=== PATIENT | male | born 1985 | race Caucasian/White ===

== ENCOUNTER 2019-06-05 19:52 | Inpatient (IN) | payer OTHER, MEDICAID ==
[~2019-06-05] VITALS: Ht 188 cm; Wt 131.6 kg
[2019-06-05] MEDS: NITROGLYCERIN 0.4MG TABLET SL SL PRN ×3 (20:58→21:33)
[2019-06-05] MEDS ORDERED: ASPIRIN 81MG TABLET PO ONE (21:00)
[2019-06-05 21:24] LABS: BASOPHILS % 1.4 % (0.0-2.0); EOSINOPHILS % 0.9 % (0.0-5.0); HEMATOCRIT. 50.7 % (42.0-52.0); HEMOGLOBIN. 17.6 g/dL (14.0-18.0); LYMPHOCYTES % 19.7 % (20.0-50.0); MEAN CORPUSCULAR HEMOGLOBIN 29.6 pg (28.0-32.0); MEAN CORPUSCULAR VOLUME 85.3 fL (80.0-94.0); MEAN PLATELET VOLUME 10.5 fl (7.4-10.4); MONOCYTES % 4.8 % (2.0-8.0); NEUTROPHILS % 73.2 % (40.0-76.0); PLATELET 230 x1000/uL (130-400); RED BLOOD CELL COUNT 5.94 mill/uL (4.7-6.1); RED CELL DISTRIBUTION WIDTH 13.6 % (11.6-14.6)
[2019-06-05 21:27] LABS: CHLORIDE 101 mEq/L (98-107)
[2019-06-05 21:31] LABS: ETHANOL BLOOD < 10 mg/dL
[2019-06-05 21:38] LABS: *AMPHETAMINES SCREEN URINE NEGATIVE (NEGATIVE); *BARBITURATES SCREEN URINE NEGATIVE (NEGATIVE); *BENZODIAZEPINES SCREEN URINE NEGATIVE (NEGATIVE); *COCAINE SCREEN URINE NEGATIVE (NEGATIVE); METHADONE URINE SCREEN NEGATIVE (NEGATIVE); OPIATES URINE SCREEN NEGATIVE (NEGATIVE)
[2019-06-05 21:39] LABS: CANNABINOID URINE SCREEN PRESUMTIVE POSITIVE (NEGATIVE); PHENCYCLIDINE URINE SCREEN NEGATIVE (NEGATIVE)
[2019-06-05] MEDS ORDERED: MORPHINE SULFATE 4 MG/ML CPJ (NOT FOR IM USE) IV ONE (22:30)
[2019-06-06] VITALS (28 sets, daily range): BP systolic 116–157; BP diastolic 65–113
[2019-06-06] MEDS ORDERED: ENOXAPARIN 150MG/ML SYR SUBCUT ONE
[2019-06-06] MEDS ORDERED: CLONIDINE 0.1MG TABLET PO PRN (01:15)
[2019-06-06] MEDS ORDERED: ONDANSETRON HCL 4MG/2ML INJ IV PRN ×2 (01:15→13:00)
[2019-06-06] MEDS ORDERED: DEXTROSE 50% WATER 50ML SYRINGE IV PRN (01:15)
[2019-06-06] MEDS ORDERED: DIPHENHYDRAMINE 50MG/ML VIAL IV PRN (01:15)
[2019-06-06] MEDS ORDERED: MAGNESIUM/ALUMINUM HYDROXIDE/SIMETHICONE 30ML UDC PO PRN (01:15)
[2019-06-06] MEDS ORDERED: ENOXAPARIN 40MG/0.4ML SYR SUBCUT SCH (01:15)
[2019-06-06] MEDS ORDERED: KETOROLAC 30MG/ML VIAL IV PRN (01:30)
[2019-06-06] MEDS ORDERED: MAGNESIUM HYDROXIDE 400MG/5ML 30ML UDC PO PRN (01:30)
[2019-06-06] MEDS ORDERED: MORPHINE SULFATE 2 MG/ML CPJ (NOT FOR IM USE) IV PRN ×2 (01:30→05:30)
[2019-06-06] MEDS: SODIUM CHLORIDE 0.9% INJ 3ML FLUSH IVF SCH (06:00)
[2019-06-06] MEDS ORDERED: BENAZEPRIL 10MG TABLET PO SCH (09:00)
[2019-06-06] MEDS ORDERED: METO-396 MT (11:07)
[2019-06-06] MEDS ORDERED: CLOP75TA4 MT (11:07)
[2019-06-06] MEDS ORDERED: ASPI-1393 MT (11:07)
[2019-06-06] MEDS ORDERED: ATOR10TA MT (11:07)
[2019-06-06] MEDS ORDERED: AMLODIPINE 5MG TABLET PO SCH (11:30)
[2019-06-06] MEDS ORDERED: CLOPIDOGREL 75MG TABLET PO NR (11:30)
[2019-06-06] MEDS ORDERED: HYDRALAZINE 20MG/ML VIAL IV PRN (11:32)
[2019-06-06] MEDS ORDERED: LIDOCAINE HCL 1% 20ML VIAL (Pyxis) INJ ONE (11:45)
[2019-06-06] MEDS ORDERED: SODIUM CHLORIDE 0.45% 1,000 ML IV SCH (11:45)
[2019-06-06] MEDS ORDERED: MIDAZOLAM HCL 2 MG/2 ML VIAL ONE (11:45)
[2019-06-06] MEDS: BENAZEPRIL 10MG TABLET PO SCH ×2 (11:45→20:31)
[2019-06-06] MEDS ORDERED: FENTANYL CITRATE/PF 50MCG/ML 2ML VIAL ONE (11:45)
[2019-06-06] MEDS: BLOOD SUGAR DIAGNOSTIC STRIP TEST SCH ×3 (11:45→21:00)
[2019-06-06] MEDS ORDERED: IODIXANOL 320MG/ML 200ML BOTTLE ONE (11:46)
[2019-06-06] MEDS ORDERED: IODIXANOL 320MG/ML 100 ML BOTTLE IV ONE (11:46)
[2019-06-06 11:49] LABS: BASOPHILS % 0.7 % (0.0-2.0); EOSINOPHILS % 0.2 % (0.0-5.0); HEMATOCRIT. 50.9 % (42.0-52.0); HEMOGLOBIN. 17.7 g/dL (14.0-18.0); LYMPHOCYTES % 17.8 % (20.0-50.0); MEAN CORPUSCULAR HEMOGLOBIN 29.6 pg (28.0-32.0); MEAN CORPUSCULAR VOLUME 85.2 fL (80.0-94.0); MEAN PLATELET VOLUME 9.7 fl (7.4-10.4); MONOCYTES % 6.5 % (2.0-8.0); NEUTROPHILS % 74.8 % (40.0-76.0); PLATELET 207 x1000/uL (130-400); RED BLOOD CELL COUNT 5.97 mill/uL (4.7-6.1); RED CELL DISTRIBUTION WIDTH 13.8 % (11.6-14.6)
[2019-06-06 12:00] LABS: CHLORIDE 101 mEq/L (98-107)
[2019-06-06] MEDS ORDERED: NICARDIPINE 100MCG/ML 10ML VIAL (CATH LAB) IV ONE (12:00)
[2019-06-06] MEDS ORDERED: NITROGLYCERIN 50MCG/ML 10ML VIAL (CATH LAB) IV ONE (12:00)
[2019-06-06] MEDS ORDERED: ASPIRIN 81MG EC TABLET PO SCH (12:00)
[2019-06-06] MEDS ORDERED: ENOXAPARIN 30MG/0.3ML SYR SUBCUT SCH (12:00)
[2019-06-06] MEDS ORDERED: ASPIRIN 325MG TABLET ONE (12:05)
[2019-06-06] MEDS ORDERED: CLOPIDOGREL 75MG TABLET ONE (12:07)
[2019-06-06 12:09] LABS: LDL CHOLESTEROL 79 mg/dL (5-100)
[2019-06-06 12:10] LABS: HDL CHOLESTEROL 29 mg/dL (40-59)
[2019-06-06] MEDS ORDERED: EPTIFIBATIDE 100 ML IV ONE (12:16)
[2019-06-06] MEDS ORDERED: EPTIFIBATIDE 2 MG/ML 10ML VIAL IV ONE (12:16)
[2019-06-06] MEDS ORDERED: HEPARIN SODIUM 1,000 UNIT/1ML VIAL IV ONE (12:53)
[2019-06-06] MEDS ORDERED: ATROPINE SULFATE 1MG/10ML SYR IV PRN (13:00)
[2019-06-06] MEDS ORDERED: INSULIN GLARGINE UD 100 UNITS/ML SYR SUBCUT SCH (13:00)
[2019-06-06] MEDS ORDERED: ACETAMINOPHEN 325MG TABLET PO PRN (13:00)
[2019-06-06] MEDS ORDERED: FUROSEMIDE 20MG TABLET PO NR (13:15)
[2019-06-06] MEDS: INSULIN LISPRO 100 UNITS/ML SUBCUT SCH ×4 (13:20→20:52)
[2019-06-06] MEDS ORDERED: POTASSIUM CHLORIDE 10MEQ TABLET SR PO NR (14:00)
[2019-06-06] MEDS: NITROGLYCERIN OINT 1GM/INCH UDPKT TD SCH ×2 (14:56→22:56)
[2019-06-06] MEDS ORDERED: METOPROLOL TARTRATE 5MG/5ML VIAL IV ONE (16:40)
[2019-06-06] MEDS: FAMOTIDINE 20MG TABLET PO SCH (20:29)
[2019-06-06] MEDS: ATORVASTATIN CALCIUM 20MG TABLET PO SCH (20:30)
[2019-06-06] MEDS: AMLODIPINE 5MG TABLET PO SCH (20:30)
[2019-06-06] MEDS: CARVEDILOL 3.125 MG TABLET PO SCH (20:32)
[2019-06-06] MEDS: MORPHINE SULFATE 2 MG/ML CPJ (NOT FOR IM USE) IV PRN (20:39)
[2019-06-06] MEDS ORDERED: ATORVASTATIN CALCIUM 20MG TABLET PO SCH (21:00)
[2019-06-06] MEDS ORDERED: FAMOTIDINE 20MG TABLET PO SCH (21:00)
[2019-06-07] VITALS (36 sets, daily range): BP systolic 74–147; BP diastolic 37–97
[2019-06-07] MEDS: NITROGLYCERIN OINT 1GM/INCH UDPKT TD SCH (06:00)
[2019-06-07] MEDS: SODIUM CHLORIDE 0.9% INJ 3ML FLUSH IVF SCH ×3 (06:00→22:18)
[2019-06-07 06:28] LABS: BASOPHILS % 0.6 % (0.0-2.0); EOSINOPHILS % 1.2 % (0.0-5.0); HEMATOCRIT. 48.4 % (42.0-52.0); HEMOGLOBIN. 16.6 g/dL (14.0-18.0); LYMPHOCYTES % 25.7 % (20.0-50.0); MEAN CORPUSCULAR HEMOGLOBIN 29.7 pg (28.0-32.0); MEAN CORPUSCULAR VOLUME 86.3 fL (80.0-94.0); MEAN PLATELET VOLUME 9.9 fl (7.4-10.4); MONOCYTES % 11.2 % (2.0-8.0); NEUTROPHILS % 61.3 % (40.0-76.0); PLATELET 180 x1000/uL (130-400); RED BLOOD CELL COUNT 5.61 mill/uL (4.7-6.1); RED CELL DISTRIBUTION WIDTH 13.8 % (11.6-14.6)
[2019-06-07 06:42] LABS: CHLORIDE 101 mEq/L (98-107)
[2019-06-07] MEDS: BLOOD SUGAR DIAGNOSTIC STRIP TEST SCH ×4 (07:50→21:15)
[2019-06-07] MEDS: ASPIRIN 325MG TABLET PO SCH (08:04)
[2019-06-07] MEDS: POTASSIUM CHLORIDE 10MEQ TABLET SR PO SCH (08:05)
[2019-06-07] MEDS: BENAZEPRIL 10MG TABLET PO SCH (08:05)
[2019-06-07] MEDS: CLOPIDOGREL 75MG TABLET PO SCH (08:05)
[2019-06-07] MEDS: FUROSEMIDE 20MG TABLET PO SCH (08:05)
[2019-06-07] MEDS: FAMOTIDINE 20MG TABLET PO SCH ×2 (08:06→21:15)
[2019-06-07] MEDS: CARVEDILOL 3.125 MG TABLET PO SCH ×2 (08:06→21:13)
[2019-06-07] MEDS: AMLODIPINE 5MG TABLET PO SCH (08:07)
[2019-06-07] MEDS: MORPHINE SULFATE 2 MG/ML CPJ (NOT FOR IM USE) IV PRN (08:07)
[2019-06-07] MEDS: INSULIN LISPRO 100 UNITS/ML SUBCUT SCH ×4 (08:08→21:20)
[2019-06-07] MEDS ORDERED: LISINOPRIL 5MG TABLET PO SCH (09:00)
[2019-06-07] MEDS ORDERED: CLOPIDOGREL 75MG TABLET PO SCH (09:00)
[2019-06-07] MEDS: INSULIN GLARGINE UD 100 UNITS/ML SYR SUBCUT SCH (12:42)
[2019-06-07] MEDS: LISINOPRIL 2.5MG TABLET PO SCH (12:43)
[2019-06-07] MEDS: ACETAMINOPHEN 325MG TABLET PO PRN (20:16)
[2019-06-07] MEDS: ATORVASTATIN CALCIUM 20MG TABLET PO SCH (21:14)
[2019-06-08] VITALS (28 sets, daily range): BP systolic 100–132; BP diastolic 56–102
[2019-06-08 05:22] LABS: BASOPHILS % 0.8 % (0.0-2.0); EOSINOPHILS % 2.2 % (0.0-5.0); HEMATOCRIT. 45.7 % (42.0-52.0); HEMOGLOBIN. 15.8 g/dL (14.0-18.0); MEAN CORPUSCULAR HEMOGLOBIN 29.6 pg (28.0-32.0); MEAN CORPUSCULAR VOLUME 85.5 fL (80.0-94.0); MEAN PLATELET VOLUME 9.6 fl (7.4-10.4); MONOCYTES % 11.3 % (2.0-8.0); NEUTROPHILS % 49.7 % (40.0-76.0); PLATELET 159 x1000/uL (130-400); RED BLOOD CELL COUNT 5.34 mill/uL (4.7-6.1); RED CELL DISTRIBUTION WIDTH 13.8 % (11.6-14.6)
[2019-06-08 05:29] LABS: CHLORIDE 104 mEq/L (98-107)
[2019-06-08] MEDS: SODIUM CHLORIDE 0.9% INJ 3ML FLUSH IVF SCH ×3 (05:55→22:35)
[2019-06-08] MEDS: BLOOD SUGAR DIAGNOSTIC STRIP TEST SCH ×4 (07:50→20:59)
[2019-06-08] MEDS: CLOPIDOGREL 75MG TABLET PO SCH (08:25)
[2019-06-08] MEDS: ASPIRIN 325MG TABLET PO SCH (08:25)
[2019-06-08] MEDS: FUROSEMIDE 20MG TABLET PO SCH (08:25)
[2019-06-08] MEDS: POTASSIUM CHLORIDE 10MEQ TABLET SR PO SCH (08:25)
[2019-06-08] MEDS: FAMOTIDINE 20MG TABLET PO SCH ×2 (08:26→20:36)
[2019-06-08] MEDS: AMLODIPINE 2.5MG TABLET PO SCH (08:30)
[2019-06-08] MEDS: LISINOPRIL 2.5MG TABLET PO SCH (08:30)
[2019-06-08] MEDS: CARVEDILOL 3.125 MG TABLET PO SCH ×2 (08:30→20:38)
[2019-06-08] MEDS: INSULIN LISPRO 100 UNITS/ML SUBCUT SCH ×4 (08:49→20:55)
[2019-06-08] MEDS: INSULIN GLARGINE UD 100 UNITS/ML SYR SUBCUT SCH (09:58)
[2019-06-08] MEDS: ATORVASTATIN CALCIUM 20MG TABLET PO SCH (20:36)
[2019-06-08] MEDS: ACETAMINOPHEN 325MG TABLET PO PRN (20:54)
[2019-06-09] VITALS (7 sets, daily range): BP systolic 106–142; BP diastolic 68–97
[2019-06-09] MEDS: SODIUM CHLORIDE 0.9% INJ 3ML FLUSH IVF SCH ×2 (05:19→13:15)
[2019-06-09] MEDS: BLOOD SUGAR DIAGNOSTIC STRIP TEST SCH ×2 (05:52→11:50)
[2019-06-09 06:36] LABS: BASOPHILS % 0.8 % (0.0-2.0); EOSINOPHILS % 2.2 % (0.0-5.0); HEMOGLOBIN. 15.7 g/dL (14.0-18.0); LYMPHOCYTES % 36.6 % (20.0-50.0); MEAN CORPUSCULAR HEMOGLOBIN 29.4 pg (28.0-32.0); MEAN CORPUSCULAR VOLUME 86.2 fL (80.0-94.0); MEAN PLATELET VOLUME 9.9 fl (7.4-10.4); MONOCYTES % 9.5 % (2.0-8.0); NEUTROPHILS % 50.9 % (40.0-76.0); PLATELET 158 x1000/uL (130-400); RED BLOOD CELL COUNT 5.33 mill/uL (4.7-6.1); RED CELL DISTRIBUTION WIDTH 13.8 % (11.6-14.6)
[2019-06-09] MEDS: AMLODIPINE 2.5MG TABLET PO SCH (08:29)
[2019-06-09] MEDS: ASPIRIN 325MG TABLET PO SCH (08:29)
[2019-06-09] MEDS: POTASSIUM CHLORIDE 10MEQ TABLET SR PO SCH ×2 (08:29→13:14)
[2019-06-09] MEDS: CARVEDILOL 3.125 MG TABLET PO SCH (08:29)
[2019-06-09] MEDS: FAMOTIDINE 20MG TABLET PO SCH (08:29)
[2019-06-09] MEDS: CLOPIDOGREL 75MG TABLET PO SCH (08:29)
[2019-06-09] MEDS: FUROSEMIDE 20MG TABLET PO SCH (08:29)
[2019-06-09] MEDS: LISINOPRIL 2.5MG TABLET PO SCH (08:29)
[2019-06-09] MEDS: INSULIN LISPRO 100 UNITS/ML SUBCUT SCH ×2 (08:31→13:32)
[2019-06-09 09:11] LABS: CHLORIDE 105 mEq/L (98-107)
[2019-06-09] MEDS ORDERED: INSULIN GLARGINE UD 100 UNITS/ML SYR SUBCUT SCH (10:00)
[2019-06-09] MEDS ORDERED: POTASSIUM CHLORIDE 20MEQ TABLET SR PO NR (11:30)
== END 2019-06-09 16:00 | disposition home or self-care (01) | DRG 174 ==
LOC: EDBD 19:52 → ER 19:52 → 6WST 06-06 00:33 → ENRESERV 06-06 08:05 → CVICU 06-06 13:04 → 3WST 06-08 21:38
PROVIDERS: ADMIT Internal Medicine; ATTEND Internal Medicine
PROC: 4A023N7 Measurement of Cardiac Sampling and Pressure, Left Heart, Percutaneous Approach (ICD-10-PCS; principal; 2019-06-06)
PROC: 02703ZZ Dilation of Coronary Artery, One Artery, Percutaneous Approach (ICD-10-PCS; 2019-06-06)
PROC: B211YZZ Fluoroscopy of Multiple Coronary Arteries using Other Contrast (ICD-10-PCS; 2019-06-06)
DX: I21.09 ST elevation (STEMI) myocardial infarction involving other coronary artery of anterior wall (principal); I11.0 Hypertensive heart disease with heart failure; E11.65 Type 2 diabetes mellitus with hyperglycemia; I50.20 Unspecified systolic (congestive) heart failure; I25.110 Atherosclerotic heart disease of native coronary artery with unstable angina pectoris; E66.9 Obesity, unspecified; E78.5 Hyperlipidemia, unspecified; E78.00 Pure hypercholesterolemia, unspecified; F17.210 Nicotine dependence, cigarettes, uncomplicated; I25.2 Old myocardial infarction; Z59.9 Problem related to housing and economic circumstances, unspecified; Z79.02 Long term (current) use of antithrombotics/antiplatelets; Z79.82 Long term (current) use of aspirin; Z79.899 Other long term (current) drug therapy; Z82.3 Family history of stroke; Z82.49 Family history of ischemic heart disease and other diseases of the circulatory system; Z91.19 Patient's noncompliance with other medical treatment and regimen; Z83.3 Family history of diabetes mellitus; Z95.5 Presence of coronary angioplasty implant and graft; Z68.37 Body mass index [BMI] 37.0-37.9, adult; Z71.6 Tobacco abuse counseling; Z79.84 Long term (current) use of oral hypoglycemic drugs
CPT/HCPCS: 36415; 71045; 80048; 80061; 80305; 80320; 82962; 83036; 83880; 84484; 85347; 92928; 93005; 93306; 93458; 99291; C1725; C1760; C1769; C1874; C1887; C1893; J1327; J1644; J1650; J1815; J2250; J2270; J3010; J3490; Q9967; G0480

== ENCOUNTER 2022-12-22 06:48 | Emergency (ER) | payer SELFPAY ==
[~2022-12-22] VITALS: Ht 188 cm; Wt 125.0 kg
[~2022-12-22 06:48] MED LIST: ASPI-1497 MT; ATOR10TA MT; CLOP-31 MT; METO-396 MT
[2022-12-22 07:50] LABS: EOSINOPHILS % 2.1 % (0.0-5.0); HEMOGLOBIN. 15.9 g/dL (14.0-18.0); LYMPHOCYTES % 28.2 % (20.0-50.0); MEAN CORPUSCULAR VOLUME 86.9 fL (80.0-94.0); MONOCYTES % 7.9 % (2.0-8.0); NEUTROPHILS % 60.8 % (40.0-76.0); PLATELET 174 x1000/uL (130-400); RED CELL DISTRIBUTION WIDTH 14.1 % (11.6-14.6)
[2022-12-22 07:57] LABS: CHLORIDE 108 mEq/L (98-107)
[2022-12-22] MEDS ORDERED: CLOPIDOGREL 75MG TABLET PO ONE (08:15)
[2022-12-22] MEDS ORDERED: LORAZEPAM 2MG/ML CPJ IM ONE (08:45)
[2022-12-22 11:48] VITALS: BP 128/81
[2022-12-22] MEDS ORDERED: SITA100T11 PO (11:53)
[2022-12-22] MEDS ORDERED: NAP5EC PO (11:53)
[2022-12-22] MEDS ORDERED: CLOP-31 MT (11:53)
== END 2022-12-22 12:38 | disposition home or self-care (01) ==
LOC: ER 06:48
DX: R07.9 Chest pain, unspecified (principal); E11.9 Type 2 diabetes mellitus without complications; I10 Essential (primary) hypertension; I25.2 Old myocardial infarction; F17.210 Nicotine dependence, cigarettes, uncomplicated; F12.90 Cannabis use, unspecified, uncomplicated; Z76.0 Encounter for issue of repeat prescription; Z86.73 Personal history of transient ischemic attack (TIA), and cerebral infarction without residual deficits; Z79.82 Long term (current) use of aspirin
CPT/HCPCS: 36415; 71045; 80053; 84484; 85025; 93005; 99285; Z7610